=== PATIENT | female | born 1980 | race African-American/Black ===

== ENCOUNTER 2018-07-18 13:20 | Emergency (ER) | payer MEDICAID ==
[~2018-07-18] VITALS: Ht 167.6 cm; Wt 80.0 kg
[2018-07-18 13:26] VITALS: BP 138/72
[2018-07-18] MEDS ORDERED: SODIUM CHLORIDE 0.9% 1,000 ML IV ONE (15:19)
== END 2018-07-18 18:56 | disposition left against medical advice (07) ==
LOC: ER 13:20
DX: R53.1 Weakness (principal); Z53.21 Procedure and treatment not carried out due to patient leaving prior to being seen by health care provider
CPT/HCPCS: J7030